=== PATIENT | female | born 1965 | race Caucasian/White ===

== ENCOUNTER 2016-09-02 07:22 | Day surgery (SDC) | payer BC ==
[~2016-09-02 07:22] MED LIST: ACETAMINOPHEN 1,000 MG/100 ML BTL IV ONE
[2016-09-02] MEDS ORDERED: DEXAMETHASONE 4 MG/ML 1ML VIAL IVP ONE (14:57)
[2016-09-02] MEDS ORDERED: ROPIVACAINE HCL (NAROPIN) /PF 5MG/ML 20ML VIAL IV ONE (14:57)
[2016-09-02] MEDS ORDERED: MIDAZOLAM HCL 2MG/2ML VIAL IV ONE (15:01)
[2016-09-02] MEDS ORDERED: PROPOFOL 10 MG/ML VIAL IV ONE (15:01)
[2016-09-02] MEDS ORDERED: LIDOCAINE 2% MDV (20MG/ML) 20ML VIAL IV ONE (15:01)
[2016-09-02] MEDS ORDERED: FENTANYL PF 100MCG/2ML VIAL IV ONE (15:01)
--- NOTE | 2016-09-02 16:53 | Operative Note ---
DATE OF SURGERY: 09/02/2016 Surgeon: Ian Hill DO PREOPERATIVE DIAGNOSIS: Carpal tunnel syndrome of the right wrist. POSTOPERATIVE DIAGNOSIS: Carpal tunnel syndrome of the right wrist. OPERATION: Decompression of right median nerve of the wrist using 3.5 loop magnification. DESCRIPTION OF PROCEDURE: This 51-year-old female was taken to the operating room and placed in the supine position on the operating room table. Assisted regional anesthesia was used, and the right upper extremity was elevated. It was prepped with Hibiclens and draped in the usual sterile fashion. It was exsanguinated and the tourniquet inflated to 250 mmHg. A palmar incision was utilized following the hypothenar crease at the level of the space of the webspace of the thumb to the flexor crease of the wrist. Dissection was carried down through the skin and the subcutaneous tissue. Hemostasis obtained with the electrocautery. The palmar fascia was divided in line with the skin incision. Flexor retinaculum was identified, punctured, and was split to its proximal margin and then with the contents of the carpal tunnel under direct vision, the transverse carpal ligament was transected along its ulnar border. The radial flap was raised to expose the entire median nerve, which did show inflammation of the tenosynovium in the carpal canal. The recurrent motor branch of the median nerve was identified and found to be intact. However, its anatomic position was abnormal in that it came off of the ulnar side of the nerve rather than the radial side of the nerve. The tenosynovium was not further disturbed. The nerve itself otherwise appeared to be essentially normal. The wound was irrigated and hemostasis obtained with the electrocautery. The wound was closed with interrupted 6-0 nylon sutures. Sterile dressings applied with plaster splint immobilization. The patient was taken to the recovery room in stable condition. CC: BEBO OLIVARES MD, FACP RADHA
== END 2016-09-02 10:50 | disposition home or self-care (01) ==
LOC: SUR 07:22
PROVIDERS: ATTEND Orthopaedic Surgery
DX: G56.01 Carpal tunnel syndrome, right upper limb (principal); I10 Essential (primary) hypertension; Z85.3 Personal history of malignant neoplasm of breast
CPT/HCPCS: 64721; 64450; 01810; J3010; J2795; 76942

== ENCOUNTER 2016-10-13 06:27 | Day surgery (SDC) | payer BC ==
--- NOTE | 2016-10-13 14:10 | Operative Note ---
DATE OF SURGERY: 10/13/2016 Surgeon: Ian Hill DO Referring physician: Yordan Arredondo MD, FACP PREOPERATIVE DIAGNOSIS: Carpal tunnel syndrome of the left wrist. POSTOPERATIVE DIAGNOSIS: Carpal tunnel syndrome of the left wrist. OPERATION: Decompression left median nerve of the wrist using 3.5 loupe magnification. Anesthesia: General. PROCEDURE: This 51-year-old female was taken to the operating room and placed in the supine position on the operating room table where general anesthesia was induced. The left upper extremity was elevated, prepped with Hibiclens, and draped in the usual sterile fashion. It was exsanguinated and the tourniquet inflated to 250 mmHg. A palmar incision was utilized following the hypothenar crease from the level of the base of the web space of the thumb to the flexor crease of the wrist. Dissection was carried down through the skin and subcutaneous tissue. Hemostasis was obtained with the electrocautery. The palmar fascia was divided in line with the skin excision. The flexor retinaculum was identified. It was punctured, split to its proximal margin, and with the contents of the carpal tunnel under direct vision, the transverse carpal ligament was transected along its ulnar border. The radial flap was raised to expose the entire median nerve under the transverse carpal ligament. The recurrent motor branch of the median nerve was identified and found to be intact. The patient had three small blood vessels noted on the ventral surface of the median nerve which were not disturbed. The nerve itself otherwise appeared to be grossly normal. The wound was irrigated with lactated Ringer's solution. The tourniquet was released and the hemostasis obtained with the electrocautery. The wound again irrigated and the wound closed with 6-0 nylon, and plaster splint immobilization was applied with the wrist in slight dorsiflexion and the thumb in an adducted position. GROSS PATHOLOGY: This patient demonstrated three small blood vessels on the ventral surface of the median nerve, recurrent motor branch had a slightly more central position than normal, but appeared to be otherwise normal, the nerve otherwise appeared grossly normal. The patient was taken to the recovery room in satisfactory condition. [facility]ITALeBnton
[2016-10-13] MEDS ORDERED: LIDOCAINE 2% MDV (20MG/ML) 20ML VIAL IV ONE (14:36)
[2016-10-13] MEDS ORDERED: MEPERIDINE 50 MG/1 ML VIAL IVP ONE (14:36)
[2016-10-13] MEDS ORDERED: PROPOFOL 10 MG/ML VIAL IV ONE (14:36)
[2016-10-13] MEDS ORDERED: KETOROLAC 30 MG/ML VIAL IVP ONE (14:36)
[2016-10-13] MEDS ORDERED: SEVOFLURANE 250 ML INH ONE (14:36)
== END 2016-10-13 09:10 | disposition home or self-care (01) ==
LOC: SUR 06:27
PROVIDERS: ATTEND Orthopaedic Surgery
DX: G56.02 Carpal tunnel syndrome, left upper limb (principal); I10 Essential (primary) hypertension; Z85.3 Personal history of malignant neoplasm of breast
CPT/HCPCS: 64721; 01810; J1885

== ENCOUNTER 2017-12-04 08:19 | Day surgery (SDC) | payer BC ==
[~2017-12-04 08:19] MED LIST changes: +FAMOTIDINE 20MG TABLET PO ONE; +MECLIZINE 25 MG TABLET PO ONE; +METOCLOPRAMIDE 10 MG TABLET PO ONE
[2017-12-04] MEDS ORDERED: FENTANYL PF 100MCG/2ML VIAL IV ONE (08:20)
[2017-12-04] MEDS ORDERED: SEVOFLURANE 250 ML INH ONE (08:20)
[2017-12-04] MEDS ORDERED: EPHEDRINE SULFATE 50 MG/ML ML IV ONE (08:20)
[2017-12-04] MEDS ORDERED: LIDOCAINE 2% MDV (20MG/ML) 20ML VIAL IV ONE (08:20)
[2017-12-04] MEDS ORDERED: ROCURONIUM BROMIDE 50MG/5ML VIAL IV ONE (08:20)
[2017-12-04] MEDS ORDERED: BUPIVACAINE 0.25% W/EPI MPF 30ML VIAL IVP ONE (08:20)
[2017-12-04] MEDS ORDERED: ONDANSETRON HCL IV 4 MG/2 ML VIAL IVP ONE (08:20)
[2017-12-04] MEDS ORDERED: PROPOFOL 10 MG/ML VIAL IV ONE (08:20)
[2017-12-04] MEDS ORDERED: SUCCINYLCHOLINE 20 MG/ML 10ML IVP ONE (08:20)
--- NOTE | 2017-12-05 13:21 | Operative Note ---
DATE OF SURGERY: 12/04/2017 Surgeon: Quentin Cabezas DO PREOPERATIVE DIAGNOSIS: Cholelithiasis with chronic cholecystitis. POSTOPERATIVE DIAGNOSIS: Cholelithiasis with chronic cholecystitis. OPERATION: Laparoscopic cholecystectomy. Indication: The patient is a 52-year-old female who is having ongoing right subcostal postprandial pain. Imaging studies did reveal a fairly heavy stone burden in the gallbladder. We did discuss cholecystectomy versus medical management. She desired surgical intervention. Risks include bleeding, infection, ductal injury, possible conversion to open, postoperative bile leak. She understood this fully. PROCEDURE: Thereafter, consent was signed and questions answered. She was taken to the operating room and placed in a supine position. General anesthesia was administered per the department of anesthesia. The patient's abdomen was prepped and draped in the usual sterile fashion. The infraumbilical region was anesthetized with a total of 5 mL of 0.25% Sensorcaine with epinephrine. A 2 cm infraumbilical incision was made. This was carried down to the anterior rectus fascia. This was incised. Gabe clamps were placed on the fascial edges and brought up into the wound. Stay sutures of 0 Vicryl were placed. Posterior rectus sheath was identified and incised. The peritoneal cavity was entered bluntly. At this time, a 10 mm blunt Lamont port was placed. Adequate pneumoperitoneum was established. Under direct visualization, additional 5 mm epigastric and two 5 mm right subcostal ports were placed. The patient was rotated into reverse Trendelenburg with rotation to left. The gallbladder was identified in subhepatic space and was noted to be very elongated. This was retracted in a cephalad and lateral direction opening up the angle of Calot. The hepatocystic triangle was thoroughly dissected out. There was no aberrant anatomy, no posterior ductal structures. The cystic duct and cystic artery were clearly identified. Each one was doubly clipped and cut in a standard fashion. Gallbladder was then taken off the liver bed with Dane harmonic. This was extracted through the umbilical port. This had to be dilated slightly secondary to the heavy stone burden. At this time, pneumoperitoneum was released. All ports removed. The fascia was closed with 0 Vicryl in a [id number] fashion. The skin at all ports was closed with 4-0 Vicryl. The patient was taken to the recovery room in satisfactory condition. FINDINGS AT THE TIME OF SURGERY: Chronic cholecystitis. CC: BEBO OLIVARES MD, FACP RADHA
== END 2017-12-04 13:05 | disposition home or self-care (01) ==
LOC: SUR 08:19
PROVIDERS: ATTEND Surgery
DX: K80.10 Calculus of gallbladder with chronic cholecystitis without obstruction (principal); I10 Essential (primary) hypertension; Z85.3 Personal history of malignant neoplasm of breast
CPT/HCPCS: 47562; 00790; J2405; J3010; J0330